=== PATIENT | female | born 2000 | race Hispanic/Latino ===

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

== ENCOUNTER 2022-05-09 17:17 | Emergency (ER) | payer BC, OTHER ==
--- OUTSIDE RECORDS SUMMARY | 2022-05-09 17:20 | XMS REPORT | Clinical Summary ---
:2000 Author Organization [facility] Address [address] [place] [address] Care Team Providers Name Role Phone Lorne Greenberg MD Primary Care Provider Aziza South MD Unavailable Allergies No known active allergies Medications No known medications Active Problems Problem Noted Date Pituitary cyst 08/13/2019 Nonspecific abnormal results of other endocrine functi on study 04/26/2017 Overview: Elevated PP levels Deficiency of vitamin D3 10/12/2015 Family history of multiple endocrine neoplasia (MEN) s yndrome 10/06/2015 Overview: Brother (MR#[id number]) and father (MR#[id number]) with MEN1; also paternal grandmother, multiple great aunts and uncles, and paternal first cousins once removed with MEN1 (one cousin found to have the following MEN1 mutation: [id number]; p.[id number]) Attention deficit hyperactivity disorder 07/08/2008 Immunizations Name Administration Dates Next Due DTaP 08/03/2004, 01/23/2002, 01/23/2001, 2000, 2000 H1N1 Inj 03/17/2009 HPV Quadrivalent 04/17/2013 Hep A, Unspecified 08/13/2005, 12/05/2004 HiB 09/18/2001, 2000, 2000 IPV 08/03/2004, 04/28/2001, 2000, 2000 Influenza (IM) Preservative Free 11/21/2011, 04/13/2010 Influenza Whole 04/17/2013 Influenza, Unspecified 05/18/2009 MMR 08/03/2004, 09/18/2001 Meningococcal MCV4, Unspecified 11/21/2011 Pneumococcal Conjugate 01/25/2003, 11/24/2002, 2000, 2000 Tdap 11/29/2016, 11/21/2011 Varicella 05/18/2009, 09/18/2001 Medical History Medical History Date Comments Encounter for nonprocreative screening 10/06/2015 Hong garcia (MR#[id number]) and father with for genetic disease carrier status MEN1; also paternal grandmother and multiple great aunts and uncles with MEN1 Family history of multiple endocrine 10/06/2015 neoplasia (MEN) syndrome Anxiety Menarche age 13 Infant formula intolerance Colic Deficiency of vitamin D3 10/12/2015 Anxiety disorder 04/01/2006 Family History Medical History Relation Name Comments Multiple endocrine neoplasia Brother Anthony Reeder III -Endocrine (Thyroid, Pituitary, Father Anthony Reeder Adrenal) -Gastrointestinal (Esophagus, Liver, Father Anthony barraza Bile Duct, Stomach, Pancreas, Colon, Rectum, Anus Diabetes Father Anthony Reeder Multiple endocrine neoplasia Father Anthony Reeder Multiple endocrine neoplasia Paternal Grandfather Relation Name Status Comments Brother Anthony Reeder III Father Anthony Reeder Paternal Grandfather Paternal Grandmother Lynne Reeder Alive Social History Tobacco Use Types Packs/Day Years Used Date Smoking Tobacco: Never Smokeless Tobacco: Never Alcohol Use Standard Drinks/Week Comments No 0 (1 standard drink = 0.6 oz pure alcoho l) Sex Assigned at Date Recorded Not on file History Length Weight Head Circum Gestation Age D/C Weight APGARs Delivery Me thod Feeding 37 wks , Unspec ified Obstetrics History Last Filed Vital Signs Not on file Plan of Treatment Health Maintenance Due Date Last Done Comments COVID-19 Vaccination (#1) 01/23/2001 Results Not on fileafter 05/09/2021 Insurance Payer Benefit Plan / Subscriber ID Effective Dates Phone Addre ss Type Group [place] [id number] 2019-Present PO MELISA X [id number] HMO BLUE [employer]ELD [place]UE[place] [employer] [phone] 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
--- OUTSIDE RECORDS SUMMARY | 2022-05-09 17:21 | XMS REPORT | Continuity of Care Document ---
:2000 Author Organization [facility] t Address [address] [place] [address] Care Team Providers Name Role Phone [phone] Primary Care Physician Unavailable Aden Shah MD Attending Clinician LYDIA VILLASEÑOR Attending Clinician Unavailable LYDIA VILLASEÑOR Admitting Clinician Unavailable Payers Payer Name Policy Type Policy Number Effective Date Expiration Date S kamaljit BARAJAS [facility] [facility] [id number] 2019 00:00:00 Problems Condition Condition Condition Status Onset Resolution Last Treating Co mments Source Name Details Category Date Date Treatment Clinician Date Pituitary Pituitary Disease Active Uni vers cyst cyst 5-14 ity of 00:00: [place] 00 MD [facility] Nonspecifi Nonspecifi Disease Active Overview : Univers c abnormal c abnormal - Formattin ity of results of results of 00:00: g of this [place] other other 00 note endocrine endocrine might be An derso function function different n study study from the Cancer original. Center Elevated PP levels Deficiency Deficiency Disease Active U nivers of vitamin of vitamin 7-13 it y of D3 D3 00:00: [place] 00 MD [facility] Family Family Disease Active Overview: Univer s history of history of 7-07 Formattin ity of multiple multiple 00:00: g of this Ricardo as endocrine endocrine 00 note neoplasia neoplasia might be An derso (MEN) (MEN) different n syndrome syndrome from the [facility] er original. Center Brother (MR#[id number]) and father (MR#[id number]) with MEN1; also paternal grandmoth er, multiple great aunts and uncles, and paternal first cousins once removed with MEN1 (one cousin found to have the following MEN1 mutation: c.l296T>A ; p.Unp480T rg) Attention Attention Disease Active Uni vers deficit deficit 4-09 ity [place] 00 [place] disorder disorder [facility] Allergies, Adverse Reactions, Alerts Allergy Allergy Status Severity Reaction(s) Onset Inactive Treating Comm ents Source Name Type Date Date Clinician NO KNOWN Drug Active Univers ALLERGIE Class ity of [facility] [place] [facility] Family History Family Member Diagnosis Comments Start Date Stop Date Source Natural father Multiple [facility] endocrine [place] MD Jarrell [facility] neoplasia Cancer Center Natural father -Endocrine University of (Thyroid, [place] Wesly son Pituitary, Cancer Center Adrenal) Natural father -Gastrointestinal Uni versity of (Esophagus, [place] Musa rson Liver, Bile Duct, Cancer Center Stomach, Pancreas, Colon, Rectum, Anus Natural father Diabetes [facility] Wes[facility] Cancer [facility] Natural [facility] Paternal grandfather Multiple Univ ersity of endocrine [place] MD Jarrell [facility] neoplasia Cancer [facility] Paternal grandmother [facility] [place] Wes[place] [facility] Cancer Center Natural brother Multiple Universit y of endocrine [place] [facility] neoplasia Cancer Center Natural mother [facility] Social History Social Habit Start Date Stop Date Quantity Comments Source History SDOH [facility] History SDMA [facility] Drinks Alcohol intake 2022-02-28 2022-02-28 Lifetime [facility] 00:00:00 00:00:00 non-drinker Hospital (finding) History SDOH 2019-05-28 2019-05-28 1 [facility] Alcohol Frequency 00:00:00 00:00:00 Hospita l Tobacco use and 2019-05-15 2019-05-15 Smokeless tobacco Me thodist exposure 00:00:00 00:00:00 non-user Hospital Sex Assigned At 2000 2000 Universit y of 00:00:00 00:00:00 [place] [facility] Smoking Status Start Date Stop Date Source Never smoked tobacco [facility] Medications Ordered Filled Start Stop Current Ordering Indication Dosage Frequency Signature Comments Components Source Medication Medication Date Date Medication? Clinician (SIG) Name Name amoxicillin 2021-04 Yes [id number] 1 by mouth [facility] -pot 1-[address] clavulanate 00:00: hours with Hospita (Augmentin) 00 food l 875-125 mg per tablet pantoprazol 2021-04 Yes [id number] 40mg QD Take 1 [facility] e 1-16 tablet (40 st (Protonix) 00:00: mg total) Ho spita 40 MG EC 00 by mouth l tablet daily before breakfast. terbinafine 2021-04- Yes [id number] 250mg QD Take 1 [facility] HCL 1-16 02-[address] (LamiSIL) 00:00: 05:59 (250 mg [facility] 250 mg 00 :00 total) by l tablet mouth daily for 90 days. albuterol 2021-04- No [id number] 2{puff} Q6H Inhale 2 [facility] (ProAir 1-16 12-[address] HFA) 90 00:00: 05:59 every 6 Hospit a mcg/actuati 00 :00 (six) l on inhaler hours as needed for wheezing for up to 30 days. codeine-gua 2021-04- [place] [id number] 10mL Q.[id number] Take 10 mL [facility] ifenesin -16 11-27 [id number] by mouth [address] (GUAIFENESI 00:00: 05:59 3D (three) Ho spita N AC) 00 :00 times a l 10-100 mg/5 day as mL liquid needed for cough for up to 10 days .acute pain. triamcinolo Yes [id number] Q.[id number] Apply Methodi ne 9-[id number] (KENALOG) 00:00: 3D 3 (three) Hos jackelyn 0.1 % 00 times a l ointment day. Immunizations Ordered Immunization Filled Immunization Date Status Commen ts Source Name Name FLUCELVAX QUAD PF 2022-01-[address] 00:00:00 [facility] PFIZER COVID-19 MRNA 2020-10-12 Completed Meth odist VACCINATION 00:00:00 [facility] PFIZER COVID-19 MRNA 2020-09-10 Completed Meth odist VACCINATION 00:00:00 [facility] FLUZONE QUAD PF 2019-01-14 Completed [facility] 00:00:00 Hospital Meningococcal MCV4P 2017-06-11 Completed Metho dist 00:00:00 Hospital Tdap 2016-11-29 Completed [facility] 00:00:00 Hospital Tdap 2016-11-29 Completed [facility] 00[facility] FLUZONE QUAD PF 2013-04-17 Completed [facility] 00:00:00 Hospital HPV Quadrivalent 2013-04-17 Completed Methodis t 00:00:00 Hospital Influenza Whole 2013-04-17 Completed [facility] 00:00:00 Hospital AFLURIA QUAD 2013-04-17 Completed [facility] PEDIATRIC (6-35MO) 00:00:00 Hospit al PF HPV Quadrivalent 2013-04-17 Completed Universi ty of 00:00:00 [place] [facility] Influenza Whole 2013-04-17 Completed Universit y of 00:00:00 [facility] Influenza (IM) 2011-11-21 Completed [facility] Preservative Free 00:00:00 Hospita l Tdap 2011-11-21 Completed [facility] 00:00:00 Hospital Meningococcal MCV4P 2011-11-21 Completed Metho dist 00:00:00 Hospital Influenza (IM) 2011-11-21 Completed University of Preservative Free 00:00:00 [facility] Meningococcal MCV4, 2011-11-21 Completed Unive rsity of Unspecified 00:00:00 [facility] 2011-11-21 Completed University of 00:00:00 [place] [facility] Influenza (IM) 2010-04-13 Completed [facility] Preservative Free 00:00:00 Hospita l Influenza (IM) 2010-04-13 Completed University of Preservative Free 00:00:00 [facility] H1N1 All Forms 2009-05-18 Completed [facility] 00:00:00 Hospital Influenza, 2009-05-18 Completed [facility] Unspecified 00:00:00 Hospital Varicella 2009-05-18 Completed [facility] 00:00:00 Hospital Influenza, 2009-05-18 Completed University of Unspecified 00:00:00 [place] [facility] Varicella 2009-05-18 Completed University of 00:00:00 [place] [facility] H1N1 Inj 2009-03-17 Completed [facility] 00:00:00 Hospital H1N1 Inj 2009-03-17 Completed University of 00:00:00 [place] Evaristo Silvestre r [facility] Hep A, Unspecified 2005-08-13 Completed Method ist 00:00:00 Hospital Hep A, Unspecified 2005-08-13 Completed Univer sity of 00:00:00 [place] MD Evaristo em [facility] Hep A, Unspecified 2004-12-05 Completed Method ist 00:00:00 Hospital Hep A, Unspecified 2004-12-05 Completed Univer sity of 00:00:00 [place] Evaristo Silvestre [facility] DTaP 2004-08-03 Completed Jewish 00:00:00 Hospital MMR 2004-08-03 Completed [facility] 00:00:00 Hospital IPV 2004-08-03 Completed [facility] 00:00:00 Hospital DTaP, Unspecified 2004-08-[address] 00:00:00 [facility] DTaP 2004-08-03 Completed University of 00:00:00 [place] Evaristo Silvestre [facility] IPV 2004-08-03 Completed University of 00:00:00 [place] Evaristo Silvestre [facility] MMR 2004-08-03 Completed University of 00:00:00 [place] Evaristo Silvestre [facility] Pneumococcal 2003-01-25 Completed Jewish Conjugate 00:00:00 [facility] Pneumococcal 2003-01-25 Completed University o f Conjugate 00:00:00 [place] Evaristo Silvestre [facility] Pneumococcal 2002-11-24 Completed [facility] Conjugate 00:00:00 Hospital Pneumococcal 2002-11-24 Completed University o f Conjugate 00:00:00 [place] Evaristo Silvestre [facility] DTaP 2002-01-23 Completed Jewish 00:00:00 [facility] DTaP, Unspecified 2002-01-[address] 00:00:00 [facility] DTaP 2002-01-23 Completed University of 00:00:00 [place] Evaristo Silvestre [facility] Hep B / HiB 2001-09-18 Completed [facility] 00:00:00 Hospital HiB 2001-09-18 Completed [facility] 00:00:00 Hospital Varicella 2001-09-18 Completed [facility] 00:00:00 Hospital MMR 2001-09-18 Completed [facility] 00:00:00 Hospital HiB 2001-09-18 Completed University of 00:00:00 [place] Evaristo Silvestre [facility] MMR 2001-09-18 Completed University of 00:00:00 [place] Evaristo Silvestre [facility] Varicella 2001-09-18 Completed University of 00:00:00 [place] [facility] IPV 2001-08-03 Completed [facility] 00:00:00 Hospital IPV 2001-04-28 Completed [facility] 00:00:00 Hospital IPV 2001-04-28 Completed University of 00:00:00 [place] [facility] DTaP 2001-01-23 Completed [facility] 00:00:00 Hospital DTaP, Unspecified 2001-01-[address] 00:00:00 Hospital DTaP 2001-01-23 Completed University [facility] 00:00:00 [place] [facility] DTaP 2000 Completed Jewish 00:00:00 [facility] Hep B / HiB 2000 Completed Jewish 00:00:00 Hospital HiB 2000 Completed [facility] 00:00:00 Hospital Pneumococcal 2000 Completed Jewish Conjugate 00:00:00 Hospital IPV 2000 Completed Jewish 00:00:00 Hospital DTaP, Unspecified [address] 00:00:00 Hospital DTaP 2000 Completed University of 00:00:00 [place] [facility] HiB 2000 Completed University of 00:00:00 [place] [facility] IPV 2000 Completed University of 00:00:00 [place] [facility] Pneumococcal 2000 Completed University o f Conjugate 00:00:00 [place] [facility] DTaP 2000 Completed [facility] 00:00:00 Hospital Hep B / HiB 2000 Completed [facility] 00:00:00 Hospital HiB 2000 Completed [facility] 00:00:00 Hospital Pneumococcal 2000 Completed Jewish Conjugate 00:00:00 Hospital IPV 2000 Completed Jewish 00:00:00 [facility] DTaP, Unspecified [address] 00:00:00 Hospital DTaP 2000 Completed University of 00:00:00 [place] [facility] r [facility] HiB 2000 Completed University of 00:00:00 [place] [facility] IPV 2000 Completed University of 00:00:00 [place] [facility] Pneumococcal 2000 Completed University o f Conjugate 00:00:00 [place] [facility] Vital Signs Vital Name Observation Time Observation Value Comments Source Body height 2022-02-14 20:20:00 154.9 cm [facility] Body weight 2022-02-14 20:20:00 63.504 kg pt reported [facility] BMI 2022-02-14 20:20:00 26.45 kg/m2 [facility] Procedures This patient has no known procedures. Plan of Care Planned Activity Planned Date Details Comments Source Future Scheduled 2022-05-09 Hepatitis C [facility] Test 16:46:53 screening Hospital (procedure) [code = 152398207] Future Scheduled 2022-05-09 COVID-19 VACCINE (3 Meth odist Test 16:46:53 - Booster for Hospital Pfizer series) [code = COVID-19 VACCINE (3 - Booster for Pfizer series)] Future Scheduled 2022-05-09 Screening for [facility] Test 16:46:53 malignant neoplasm Hospital of cervix (procedure) [code = 313325928] Future Scheduled 2022-05-09 Screening for Postponed from Methodis t Test 16:46:53 Chlamydia 2016 (Not Hospital trachomatis Indicated) (procedure) [code = 953778028] Future Scheduled 2021-10-04 COVID-19 University of Test 04:34:55 Vaccination (#1) Arnaldo hidalgo [code = COVID-19 Cancer [facility] Vaccination (#1)] Encounters Start End Encounter Admission Attending Care Care Encounter Source Date/Time Date/Time Type Type Clinicians Facility Department ID 2022-02-14 2022-02-15 [facility], [id number] [facility] 14:15:00 12:24:44 ne Aden Bruno [id number] [id number] Hospit a .[id number] l .8 2022-02-14 2022-02-15 Outpatient [facility] [id number] [place] 00:00:00 00:00:[address] AD[address] 2019-12-29 2019-12-29 [facility] [id number] [place] 00:00:00 00:00:00 ADEN [address] 2019-09-24 2019-09-24 Outpatient [facility] [id number] [place] 00:00:00 00:00:00 ADEN 710 Method i 2019-05-28 2019-05-28 Outpatient SHAH, [facility] [id number] [place] 00:00:00 00:00:00 ADEN 914 Method i 2019-05-22 2019-05-22 Outpatient SHAH, [facility] [id number] [place] 00:00:00 00:00:00 ADEN 178 Method i 2019-05-22 2019-05-22 Outpatient SHAH, [facility] [id number] [place] 00:00:00 00:00:00 ADEN 180 Method i 2019-05-22 2019-05-22 Outpatient SHAH, [facility] [id number] [place] 00:00:00 00:00:00 ADEN 179 Method i 2019-04-03 2019-04-03 Emergency X CHARLEEN WAPABLO [facility] [id number] Univers 21:59:09 23:33:00 LYDIA bowman [facility] Results This patient has no known results.
--- NOTE | 2022-05-09 17:54 | RAD REPORT ---
EXAM DESCRIPTION: CT - Head Brain Wo Cont - 05/09/2022 5:34 pm CLINICAL HISTORY: HEADACHE Headache, drowsiness COMPARISON: No comparisons TECHNIQUE: All CT scans are performed using dose optimization technique as appropriate and may inclu de automated exposure control or mA/KV adjustment according to patient size. FINDINGS: No intracranial hemorrhage, hydrocephalus or extra-axial fluid collection.No areas of brai n edema or evidence of midline shift. The paranasal sinuses and mastoids are clear. The calvarium is intact. IMPRESSION: No acute intracranial abnormality.
[2022-05-09] MEDS ORDERED: DIPHENHYDRAMINE 50 MG/ML VIAL ONE (18:26)
[2022-05-09] MEDS ORDERED: dexAMETHasone 10 MG/ML VIAL ONE (18:26)
[2022-05-09] MEDS ORDERED: METOCLOPRAMIDE 10 MG/2mL INJ ONE (18:26)
[2022-05-09] MEDS ORDERED: NA CHLORIDE 0.9% 1,000 ML ONE (18:27)
[2022-05-09] MEDS ORDERED: KETOROLAC 30 MG/ML INJ ONE (18:27)
--- NOTE | 2022-05-09 19:50 | EDPHYS ---
Physician Documentation [facility] Name: Jessica Reeder Age: 21 yrs Sex: Female : 2000 Arrival Date: 05/09/2022 Time: 17:18 Bed 19 Private MD: ED Physician Guy Hart HPI: 05/09 20:04 This 21 yrs old Female presents to ER via Ambulatory with complaints of kb Headache - migraine. 20:04 The patient complains of pain to the top of head. The patient describes the headache as kb constant. Onset: The symptoms/episode began/occurred 4 day(s) ago. Associated signs and symptoms: Pertinent positives: nausea, Photophobia. Severity of symptoms: At its worst the pain was moderate, in the emergency department the pain is unchanged. Headache History: Denies prior headaches. The symptoms are alleviated by nothing. the symptoms are aggravated by lights, phone/computer screen. The patient has not experienced similar symptoms in the past. The patient has not recently seen a physician. 20:05 Pt reports headache, nausea and photophobia that started 4 days ago. Denies fever. kb Denies previous headaches. States she has had family members that developed migraines in the past and were found to have tumors in the brain so she was concerned about that. 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 - Social history:: Smoking status: Patient denies any tobacco usage or history of. ROS: 20:03 Constitutional: Negative for fever, chills, and weight loss. kb 20:03 Neuro: Positive for headache. 20:03 All other systems are negative. Exam: 20:03 Constitutional: This is a well developed, well nourished patient who is awake, alert, kb and in no acute distress. Head/Face: Normocephalic, atraumatic. ENT: Moist Mucous membranes Cardiovascular: Regular rate and rhythm with a normal S1 and S2. No gallops, murmurs, or rubs. No pulse deficits. Respiratory: Respirations even and unlabored. No increased work of breathing. Talking in full sentences Abdomen/GI: Soft, non-tender. No distention Skin: Warm, dry with normal turgor. Normal color. MS/ Extremity: Pulses equal, no cyanosis. Neurovascular intact. Full, normal range of motion. Neuro: Awake and alert, GCS 15, oriented to person, place, time, and situation. Moves all extremities. Normal gait. Psych: Awake, alert, with orientation to person, place and time. Behavior, mood, and affect are within normal limits. Vital Signs: 17:23 BP 123 / 88; Pulse 94; Resp 18 S; Temp 98.1(TE); Pulse Ox 100% on R/A; Weight 61.69 kg aa5 (R); Height 5 ft. 1 in. (154.94 cm) (R); 19:02 BP 111 / 78; Pulse 84; Resp 17; Pulse Ox 100% on R/A; kr3 17:23 Body Mass Index 25.70 (61.69 kg, 154.94 cm) aa5 [place] Coma Score: 20:03 Eye Response: spontaneous(4). Verbal Response: oriented(5). Motor Response: obeys kb commands(6). Total: 15. MDM: 17:26 Patient medically screened. kb 20:03 Differential diagnosis: tension headache, migraine. Data reviewed: vital signs, nurses kb notes. Counseling: I had a detailed discussion with the patient and/or guardian regarding: the historical points, exam findings, and any diagnostic results supporting the discharge/admit diagnosis, radiology results, the need for outpatient follow up, a family practitioner, a neurologist, to return to the emergency department if symptoms worsen or persist or if there are any questions or concerns that arise at home. 20:04 Response to treatment: the patient's symptoms have markedly improved after treatment. kb 05/09 17:27 Order name: CT Head Brain wo Cont; Complete Time: 17:58 kb 05/09 17:27 Order name: IV Start; Complete Time: 18:43 kb Administered Medications: 18:43 Drug: Ketorolac 15 mg Route: IVP; Site: left antecubital; kr3 18:43 Drug: NS 0.9% 1000 ml Route: IV; Rate: 1000 ml; Site: left antecubital; kr3 20:09 Follow up: Response: No adverse reaction; IV Status: Completed infusion; IV Intake: aa9 1000ml 18:43 Drug: Reglan (metoCLOPramide) 10 mg Route: IVP; Site: left antecubital; kr3 18:43 Drug: Benadryl (diphenhydrAMINE) 12.5 mg Route: IVP; Site: left antecubital; kr3 18:43 Drug: Decadron - Dexamethasone 10 mg Route: IVP; Site: left antecubital; kr3 Disposition Summary: 05/09/22 19:49 Discharge Ordered Location: Home kb Condition: Stable kb Diagnosis - Headache kb Followup: kb - With: Emergency Department - When: As needed - Reason: Worsening of condition Followup: kb - With: Private Physician - When: 2 - 3 days - Reason: Recheck today's complaints, Continuance of care, Re-evaluation by your physician Discharge Instructions: - Discharge Summary Sheet kb - Migraine Headache, [id number] kb - General Headache Without Cause, [id number] kb Forms: - Medication Reconciliation Form kb - Thank You Letter kb - Antibiotic Education kb - Prescription Opioid Use kb - School release form aa9 Signatures: Dispatcher [employer] EDMS Radha Figueroa, INCLUSION MANAGER-C INCLUSION MANAGER-Nuha Friedman RN RN aa5 Lea Mcclellan RN RN kr3 Karolina Velazco RN aa9
--- NOTE | 2022-05-09 19:50 | ER ---
Nurse's Notes [facility] Name: Jessica Reeder Age: 21 yrs Sex: Female : 2000 Arrival Date: 05/09/2022 Time: 17:18 Bed 19 Private MD: Diagnosis: Headache Presentation: 05/09 17:23 Chief complaint: Patient states: AMARO that began 4 days ago. Pt reports nausea, denies aa5 vomiting. Coronavirus screen: nausea. Ebola Screen: Patient denies travel to an Ebola-affected area in the 21 days before illness onset. Initial Sepsis Screen: Does the patient meet any 2 criteria? No. Patient's initial sepsis screen is negative. Does the patient have a suspected source of infection? No. Patient's initial sepsis screen is negative. Risk Assessment: Do you want to hurt yourself or someone else? Patient reports no desire to harm self or others. Onset of symptoms was May 2022. 17:23 Method Of Arrival: Ambulatory aa5 17:23 Acuity: LONG 3 aa5 Triage Assessment: 19:24 Headache History: The patient has had previous headaches and this one is similar to aa9 previous episodes. General: Appears in no apparent distress. comfortable, Behavior is calm, cooperative. Neuro: Level of Consciousness is awake, alert, obeys commands, Oriented to person, place, time, situation. 20:08 Pain: Also complains of no other associated symptoms. Respiratory: Airway is patent aa9 Respiratory effort is even, unlabored. 20:08 Pain: Pain. 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 - Social history:: Smoking status: Patient denies any tobacco usage or history of. Screenin:20 Abuse screen: Denies threats or abuse. Denies injuries from another. Nutritional aa9 screening: No deficits noted. Tuberculosis screening: No symptoms or risk factors identified. Assessment: 18:30 Reassessment: Patient appears in no apparent distress at this time. Patient and/or kr3 family updated on plan of care and expected duration. Pain level reassessed. Patient is alert, oriented x 3, equal unlabored respirations, skin warm/dry/pink. 20:08 General: Appears in no apparent distress. Behavior is calm, cooperative, appropriate aa9 for age. Neuro: Level of Consciousness is awake, alert, obeys commands, Oriented to person, place, time, situation. Respiratory: Airway is patent Respiratory effort is even, unlabored. Vital Signs: 17:23 BP 123 / 88; Pulse 94; Resp 18 S; Temp 98.1(TE); Pulse Ox 100% on R/A; Weight 61.69 kg aa5 (R); Height 5 ft. 1 in. (154.94 cm) (R); 19:02 BP 111 / 78; Pulse 84; Resp 17; Pulse Ox 100% on R/A; kr3 17:23 Body Mass Index 25.70 (61.69 kg, 154.94 cm) aa5 Lisha Coma Score: 20:03 Eye Response: spontaneous(4). Verbal Response: oriented(5). Motor Response: obeys kb commands(6). Total: 15. ED Course: 17:18 Patient arrived in ED. am2 17:19 Radha Figueroa FNP-C is [facility]. kb 17:19 Guy Hart DO is Attending Physician. kb 17:23 Arm band placed on. aa5 17:24 Triage completed. aa5 17:35 CT Head Brain wo Cont In Process Unspecified. EDMS 18:19 Lea Mcclellan, RN is Primary Nurse. kr3 18:35 Inserted saline lock: 22 gauge in left antecubital area, using aseptic technique. kr3 19:22 Patient has correct armband on for positive identification. Bed in low position. Call aa9 light in reach. 20:07 No provider procedures requiring assistance completed. IV discontinued, intact, aa9 bleeding controlled, No redness/swelling at site. Pressure dressing applied. Administered Medications: 18:43 Drug: Ketorolac 15 mg Route: IVP; Site: left antecubital; kr3 18:43 Drug: NS 0.9% 1000 ml Route: IV; Rate: 1000 ml; Site: left antecubital; kr3 20:09 Follow up: Response: No adverse reaction; IV Status: Completed infusion; IV Intake: aa9 1000ml 18:43 Drug: Reglan (metoCLOPramide) 10 mg Route: IVP; Site: left antecubital; kr3 18:43 Drug: Benadryl (diphenhydrAMINE) 12.5 mg Route: IVP; Site: left antecubital; kr3 18:43 Drug: Decadron - Dexamethasone 10 mg Route: IVP; Site: left antecubital; kr3 Medication: 19:22 VIS not applicable for this client. aa9 Intake: 20:09 IV: 1000ml; Total: 1000ml. aa9 Outcome: 19:49 Discharge ordered by MD. hurd 20:08 Discharged to home ambulatory, with friend. aa9 20:08 Condition: stable 20:08 Discharge instructions given to patient, Instructed on discharge instructions, follow up and referral plans. Demonstrated understanding of instructions, follow-up care. 20:08 Patient left the ED. aa9 Signatures: Dispatcher [employer] EDMS Radha Figueroa, FRONT WINDOW CASHIER-C FRONT WINDOW CASHIER-CkNuha Baum, RN RN aa5 Sanaz Guillaume am2 Karolina Velazco RN RN aa9 Lea Mcclellan, LOUIS RN kr3 Corrections: (The following items were deleted from the chart) 17:25 17:23 Pulse 109bpm; Resp 18bpm; Spontaneous; Pulse Ox 100% RA; Temp 98.1F Temporal; aa5 aa5 17:26 17:23 BP 123 / 88; Pulse 94bpm; Resp 18bpm; Spontaneous; Pulse Ox 100% RA; Temp 98.1F aa5 Temporal; aa5 18:44 18:43 Inserted saline lock: 22 gauge in left antecubital area, using aseptic technique. kr3 kr3
[2022-05-09 20:13] VITALS: TEMP 98.1; O2SAT 100
[2022-05-09 20:14] VITALS: BP 111/78
== END 2022-05-09 20:08 | disposition home or self-care (01) ==
LOC: ER 17:17
DX: R51.9 Headache, unspecified (principal); R11.0 Nausea
CPT/HCPCS: 70450; J2765; J1200; J1100; J7030

== ENCOUNTER 2024-12-20 03:13 | Emergency (ER) | payer OTHER ==
--- OUTSIDE RECORDS SUMMARY | 2024-12-20 03:17 | XMS REPORT | Clinical Summary ---
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 Family history of multiple e ndocrine neoplasia (MEN) syndrome 10/06/2015 Overview (10/06/2015): Brother (MR#[id number]) and father (MR#[id number]) with MEN1; also paternal grandmother, multiple great aunts and uncles, and paternal first cousins once removed with MEN1 (one cousin found to have the following MEN1 mutation: [id number]; [id number]) Attention deficit hyperactivity disorder 009 Encounters Date Type Department Care Team Description 12/17/2024 Telephone Clinical Genetics [address] [facility], [address]th Floor, [place] [address] Brooke Mcdowell after 12/21/2023 Immunizations Immunization Administration Dates Next Due DTaP 08/03/2004, 2,01/23/2001,11/25,2000 H1N1 Inj 03/17/2009 HPV 04/17/2013 Hep A, Unspecified 08/13/2005,12/05/2004 HiB 09/18/2001,2000,2000 IPV 08/03/2004, 2,2000,09/26 Influenza Whole 04/17/2013 Influenza, Unspecified 05/18/2009 Influenza, split virus, triv alent, preservative free 11/21/2011,04/13/2010 MMR 08/03/2004,09/18/2001 Meningococcal MCV4, Unspecified 11/21/2011 Pneumococcal Conjugate 7-Valent 01/26/20 03,11/24/2002,2000,09/26 Tdap 11/29/2016,11/21/2011 Varicella 05/18/2009,09/18/2001 Medical History Medical History Date Comments Encounter for nonprocreative screening for genetic disease carrier status 10/06/2015 Brother (MR#[id number] ) and father with MEN1; also paternal grandmother and multiple great aunts and uncles with MEN1 Family history of multiple e ndocrine neoplasia (MEN) syndrome 10/06/2015 Anxiety Menarche age 13 formula intolerance Colic Deficiency of vitamin D3 10/12/2015 Anxiety disorder 04/01/2006 Family History Medical History Relation Name Comments Multiple endocrine neoplasia Brother Lexie dumont III -Endocrine (Thyroid, Pituita ry, Adrenal) Father Lexie Mix -Gastrointestinal (Esophagus , Liver, Bile Duct, Stomach, Pancreas, Colon, Rectum, Anus Father Lexie Mix Diabetes Father Lexie Mix Multiple endocrine neoplasia Father Lexie dumont Colon cancer Other 1 Multiple endocrine neoplasia Paternal Grandfather Relation Name Status Comments Brother Lexie Mix III Alive Father Lexie Mix Maternal Aunt 1 Alive Maternal Aunt 2 Alive Maternal Grandfather Alive Maternal Grandmother Alive Maternal Uncle Alive Mother Alive Other 1 Alive Other 2 Alive Other 3 Alive Paternal Grandfather Paternal Grandmother Lynne Mix Alive Social History Tobacco Use Types Packs/Day Years Used Date Smoking Tobacco: Never Smokeless Tobacco: Never Alcohol Use Standard Drinks/Week Comments No 0 (1 standard drink = 0.6 oz pur e alcohol) Comments No Sex and Gender Information Value Date Recorded Sex Assigned at Not on file Legal Sex Female 12:03 PM CDT Gender Identity Not on file Sexual Orientation Not on file Occupation Industry Job Start Date Job End Date student Not on file Not on file Not on file History Length Weight Head Circum Date/Time Gestation Age D/C Weight APGARs Delivery Method Feeding 2000 37 wks C-Sectio n, Unspecified Obstetrics History Plan of Treatment Health Maintenance Due Date Last Done Comments COVID-19 Vaccine ( season) 2024 10/12/2020, 09/10/2020 Influenza Vaccine (#1) 2024 4, 11/21/2011, 04/13/2010, Additional history exists Pneumococcal Vaccine Aged Out 01/25/2003, 11/24/2002, 2000, Additional history exists No longer eligible based on patient's age to complete this topic Insurance PPO Advance Directives * Full Code (Latest Code Status on File) Date Activated Date Inactivated Comments 12/17/2024 2:05 PM Update based o n Advanced Directive Documentation Care Teams Clinical Safety Manager Relationship Specialty Start Date End Date Lorne Greenberg MD [address] [place] [phone] [email or web address] PCP - General Endocrinology 04/29/17 Aziza South MD [address] [place] [phone] PCP - External Follow Up A Pediatric Endocrinology 04/29/17
[2024-12-20] MEDS ORDERED: BENZONATATE 100 MG CAP PO ONE (04:26)
[2024-12-20 05:03] LABS: Influenza A Ag Negative; Influenza B Ag Negative; SARS-CoV-2 Antigen Rapid Res Negative (Negative)
--- NOTE | 2024-12-20 05:43 | ER ---
Nurse's Notes [facility] Name: Jessica Reeder Age: 24 yrs Sex: Female : 2000 Arrival Date: 12/20/2024 Time: 03:13 Bed 13 Private MD: Diagnosis: ACUTE UPPER RESPIRATORY INFECTION Presentation: 12/20 03:26 Chief complaint: Patient states: Coughing where I am vomiting. If I eat I throw up. vc1 Short of breath. Sore throat. Coronavirus screen: Vaccine status: Patient reports receiving the 2nd dose of the covid vaccine. cough unrelated to allergies, shortness of breath, sore throat, Client presents with at least one sign or symptom that may indicate coronavirus-19. Ebola Screen: Patient negative for fever greater than or equal to 101.5 degrees Fahrenheit, and additional compatible Ebola Virus Disease symptoms Patient denies exposure to infectious person. Patient denies travel to an Ebola-affected area in the 21 days before illness onset. No symptoms or risks identified at this time. Initial Sepsis Screen: Does the patient meet any 2 criteria? No. Patient's initial sepsis screen is negative. Does the patient have a suspected source of infection? No. Patient's initial sepsis screen is negative. Risk Assessment: Do you want to hurt yourself or someone else? Patient reports no desire to harm self or others. Onset of symptoms was December 05, 2024. 03:26 Method Of Arrival: Ambulatory vc1 03:26 Acuity: LONG 4 vc1 Triage Assessment: 03:24 General: Appears in no apparent distress. uncomfortable, ill, Behavior is calm, vc1 cooperative, appropriate for age. Pain: Complains of pain in throat. EENT: Reports nasal congestion pain when swallowing. Neuro: Level of Consciousness is awake, alert, obeys commands, Oriented to person, place, time, situation, Appropriate for age. Cardiovascular: Heart tones S1 S2 present Capillary refill < 3 seconds Patient's skin is warm and dry. Respiratory: Reports shortness of breath cough that is Airway is patent Respiratory effort is even, unlabored, Respiratory pattern is regular, symmetrical, Breath sounds are clear. GI: Abdomen is round non-distended, Reports nausea, vomiting. : No deficits noted. No signs and/or symptoms were reported regarding the genitourinary system. Derm: No deficits noted. No signs and/or symptoms reported regarding the dermatologic system. Derm: Skin is intact, is healthy with good turgor, Skin is dry, Skin is normal, Skin temperature is warm. Musculoskeletal: No signs and/or symptoms reported regarding the musculoskeletal system. Circulation, motion, and sensation intact. Range of motion: intact in all extremities. OVEN TENDER: 03:29 LMP 12/08/2024, unknown vc1 Historical: - Allergies: 03:28 No Known Allergies; vc1 - Home Meds: 03:28 None [Active]; vc1 - PMHx: 03:28 None; vc1 - PSHx: 03:28 None; vc1 - Immunization history:: Client reports receiving the 2nd dose of the Covid vaccine. - Infectious Disease History:: Denies. - Social history:: Smoking status: Patient denies any tobacco usage or history of. Screenin:51 [facility] ED Fall Risk Assessment (Adult) History of falling in the last 3 months, ss12 including since admission No falls in past 3 months (0 pts) Confusion or Disorientation No (0 pts) Intoxicated or Sedated No (0 pts) Impaired Gait No (0 pts) Mobility Assist Device Used No (0 pt) Altered Elimination No (0 pt) Score/Fall Risk Level 0 - 2 = Low Risk Oriented to surroundings, Maintained a safe environment, Educated pt \T\ family on fall prevention, incl call for assistance when getting out of bed, Assessed \T\ reinforced patient's understanding of fall precautions. Abuse screen: Denies threats or abuse. Denies injuries from another. Nutritional screening: No deficits noted. Tuberculosis screening: No symptoms or risk factors identified. Assessment: 03:24 General: Appears in no apparent distress. comfortable, Behavior is calm, cooperative, ss12 quiet. Pain: Denies pain. Neuro: No deficits noted. Level of Consciousness is awake, alert, obeys commands, Oriented to person, place, time, situation. Cardiovascular: No deficits noted. Capillary refill < 3 seconds Patient's skin is warm and dry. Respiratory: No deficits noted. Airway is patent Respiratory effort is even, unlabored, Respiratory pattern is regular, symmetrical. GI: Abdomen is flat, non-distended, Reports nausea, vomiting. : No deficits noted. No signs and/or symptoms were reported regarding the genitourinary system. EENT: No deficits noted. No signs and/or symptoms were reported regarding the EENT system. Derm: No deficits noted. No signs and/or symptoms reported regarding the dermatologic system. Musculoskeletal: No deficits noted. No signs and/or symptoms reported regarding the musculoskeletal system. Vital Signs: 03:29 Weight 77.11 kg; Height 5 ft. 2 in. ; vc1 03:29 BP 113 / 87; Pulse 106; Resp 20; Temp 97.4; Pulse Ox 95% ; vc1 05:52 BP 117 / 81; Pulse 104; Resp 20; Pulse Ox 96% ; cp4 03:29 Body Mass Index 31.09 (77.11 kg, 157.48 cm) vc1 ED Course: 03:18 Patient arrived in ED. gm2 03:28 Triage completed. vc1 03:28 Arm band placed on right wrist. vc1 03:52 Dominga Orr RN is Primary Nurse. ss12 04:06 Serjio Barakat DO is Attending Physician. tt7 04:49 COVID-19 Ag + Flu A+B Ag Sent. ss12 04:52 Patient has correct armband on for positive identification. Provided Education on: plan ss12 of care. 04:52 No provider procedures requiring assistance completed. ss12 05:49 Patient did not have IV access during this emergency room visit. vc1 Administered Medications: 04:00 Drug: Tessalon Perle PO 200 mg PO once Route: PO; ss12 05:45 Follow up: Response: No adverse reaction; Marked relief of symptoms vc1 Medication: 04:52 VIS not applicable for this client. ss12 Outcome: 05:43 Discharge ordered by . tt7 05:48 Discharged to home ambulatory, vc1 05:48 Condition: stable 05:48 Discharge instructions given to patient, Instructed on discharge instructions, follow up and referral plans. Demonstrated understanding of instructions, follow-up care, medications, Prescriptions given X 1, 05:52 Patient left the ED. cp4 Signatures: Sofiya Wei RN RN vc1 Brenna To cp4 Sherrie Cat gm2 Dominga Orr RN RN ss12 Serjio Barakat DO DO tt7 Corrections: (The following items were deleted from the chart) 05:47 03:29 BP 113 / 87; Pulse 106bpm; Resp 20bpm; Pulse Ox 95%; Temp 8.4F; vc1 vc1
--- NOTE | 2024-12-20 05:43 | EDPHYS ---
Physician Documentation [facility] Name: Jessica Reeder Age: 24 yrs Sex: Female : 2000 Arrival Date: 12/20/2024 Time: 03:13 Bed 13 Private MD: ED Physician Serjio Barakat MANAGER PRIMARY CARE: 12/20 03:29 LMP 12/08/2024, unknown vc1 Historical: - Allergies: 03:28 No Known Allergies; vc1 - Home Meds: 03:28 None [Active]; vc1 - PMHx: 03:28 None; vc1 - PSHx: 03:28 None; vc1 - Immunization history:: Client reports receiving the 2nd dose of the Covid vaccine. - Infectious Disease History:: Denies. - Social history:: Smoking status: Patient denies any tobacco usage or history of. Vital Signs: 03:29 Weight 77.11 kg; Height 5 ft. 2 in. ; vc1 03:29 BP 113 / 87; Pulse 106; Resp 20; Temp 97.4; Pulse Ox 95% ; vc1 05:52 BP 117 / 81; Pulse 104; Resp 20; Pulse Ox 96% ; cp4 03:29 Body Mass Index 31.09 (77.11 kg, 157.48 cm) vc1 MDM: 04:10 Medical Screening Exam initiated tt7 12/20 04:32 Order name: COVID-19 Ag + Flu A+B Ag; Complete Time: 05:06 kmf Administered Medications: 04:00 Drug: Tessalon Perle PO 200 mg PO once Route: PO; ss12 05:45 Follow up: Response: No adverse reaction; Marked relief of symptoms vc1 Disposition Summary: 12/20/24 05:43 Discharge Ordered Notes: Location: Home tt7 Problem: new tt7 Symptoms: have improved tt7 Condition: Stable tt7 Diagnosis - ACUTE UPPER RESPIRATORY INFECTION tt7 Followup: tt7 - With: Emergency Department - When: As needed - Reason: Followup: tt7 - With: Private Physician - When: 1 - 2 days - Reason: Recheck today's complaints, Re-evaluation by your physician Discharge Instructions: - Discharge Summary Sheet tt7 - Upper Respiratory Infection, Adult, [id number] tt7 Forms: - Work release form al5 - Medication Reconciliation Form tt7 - Antibiotic Education tt7 - Prescription Opioid Use tt7 - Patient Portal Instructions tt7 - Leadership Thank You Letter tt7 Prescriptions: - Tessalon Perles 100 mg Oral Capsule - take 1 capsule ORAL route every 8 hours As needed; 15 capsule; Refills: 0, tt7 Product Selection Permitted Signatures: Dispatcher [employer] EDSofiya Hinton RN RN vc1 Dominga Orr RN RN ss12 Serjio Barakat, DO DO tt7
[2024-12-20 05:57] VITALS: TEMP 97.4
[2024-12-20 05:59] VITALS: BP 117/81; O2SAT 96
== END 2024-12-20 05:52 | disposition home or self-care (01) ==
LOC: ER 03:13
DX: J06.9 Acute upper respiratory infection, unspecified (principal); R11.10 Vomiting, unspecified; J02.9 Acute pharyngitis, unspecified; Z11.52 Encounter for screening for COVID-19
CPT/HCPCS: 36415; 87428; 99283